=== PATIENT | female | born 1995 | race Asian ===

== ENCOUNTER 2017-12-17 16:50 | Emergency (ER) | payer OTHER ==
[~2017-12-17] VITALS: Ht 167.6 cm; Wt 61.2 kg
[2017-12-17 17:15] VITALS: BP 105/88; TEMP 99.3
[2017-12-17 18:08] LABS: PLATELET COUNT 169 K/uL (152-353)
[2017-12-17 18:13] LABS: POTASSIUM 3.8 mmol/L (3.6-5.2)
== END 2017-12-17 20:25 | disposition home or self-care (01) ==
LOC: ED 16:50
DX: K59.09 Other constipation (principal)
CPT/HCPCS: 36415; 74022; 80053; 85027; 99283

== ENCOUNTER 2018-08-25 12:15 | Emergency (ER) | payer OTHER ==
[~2018-08-25] VITALS: Ht 167.6 cm; Wt 61.2 kg
[2018-08-25 14:00] VITALS: BP 131/74; TEMP 98.3
== END 2018-08-25 14:00 | disposition home or self-care (01) ==
LOC: ED 12:15
DX: N93.8 Other specified abnormal uterine and vaginal bleeding (principal); K59.09 Other constipation
CPT/HCPCS: 81000; 81025; 99283

== ENCOUNTER 2018-12-08 06:32 | Emergency (ER) | payer OTHER ==
[~2018-12-08] VITALS: Ht 167.6 cm; Wt 61.2 kg
[2018-12-08 06:41] VITALS: TEMP 98.7
[2018-12-08 07:53] VITALS: BP 118/68
== END 2018-12-08 07:53 | disposition home or self-care (01) ==
LOC: ED 06:32
DX: N39.0 Urinary tract infection, site not specified (principal)
CPT/HCPCS: 81000; 81025; 87077; 87086; 87088; 87186; 99283

== ENCOUNTER 2018-12-28 13:28 | Emergency (ER) | payer OTHER ==
[~2018-12-28] VITALS: Ht 162.6 cm; Wt 64.4 kg
[2018-12-28 14:24] LABS: PLATELET COUNT 199 K/uL (152-353)
[2018-12-28 14:34] LABS: POTASSIUM 3.9 mmol/L (3.6-5.2)
[2018-12-28 19:09] VITALS: BP 124/70; TEMP 97.8
== END 2018-12-28 19:09 | disposition home or self-care (01) ==
LOC: ED 13:28
PROVIDERS: Emergency Medicine
DX: N39.0 Urinary tract infection, site not specified (principal); A59.9 Trichomoniasis, unspecified; N30.90 Cystitis, unspecified without hematuria
CPT/HCPCS: 80053; 81000; 81025; 82150; 83690; 85027; 87077; 87086; 87088; 87186; 99283; Q9963

== ENCOUNTER 2019-02-17 11:08 | Emergency (ER) | payer OTHER ==
[~2019-02-17] VITALS: Ht 162.6 cm; Wt 61.2 kg
[2019-02-17 11:18] VITALS: BP 122/75; TEMP 98.6
[2019-02-17 12:11] LABS: PLATELET COUNT 165 K/uL (152-353)
[2019-02-17 12:15] LABS: POTASSIUM 3.7 mmol/L (3.6-5.2)
== END 2019-02-17 13:10 | disposition home or self-care (01) ==
LOC: ED 11:08
PROVIDERS: Family Medicine
DX: N39.0 Urinary tract infection, site not specified (principal); R10.84 Generalized abdominal pain
CPT/HCPCS: 80053; 81000; 81025; 85027; 87077; 87086; 87088; 87186; 96372; 99283; J0696